=== PATIENT | female | born 1945 | race Caucasian/White ===

== ENCOUNTER → 2025-03-23 16:48 | Outpatient (ROUT) | payer SELFPAY ==
[2025-03-23 17:08] LABS: Bilirubin Urine UA Negative (NEGATIVE); Glucose Urine UA NEGATIVE (Negative); Ketones Urine UA NEGATIVE (NEGATIVE)
[2025-03-23 17:09] LABS: Occult Blood Urine UA Negative (Negative); pH Urine UA 8 (4.5-8.0)
[2025-03-23 17:10] LABS: Leukocyte Esterase Urine UA 4+ (NEGATIVE); Nitrite Urine UA POSITIVE (Negative); Protein Urine UA 2+ (Negative)
[2025-03-23 17:11] LABS: Urobilinogen Urine UA 0.2 E.U./dL (0.2)
[2025-03-23 17:12] LABS: Bacteria Urine Moderate (10-30); Calcium Oxalate Crystals Urine Few; Culture Indicated Urine Specimen Cultured; RBC Urine None Seen (0-5/HPF); Squamous Epithelial Cell Urine None Seen (0-5/HPF); Urine Volume 10mL (spun); WBC Urine >100/HPF (0-5/HPF)
[2025-03-23 20:58] LABS: Appearance Urine UA Cloudy; Color Urine UA Yellow
== END ==
LOC: LAB 16:50
DX: R35.0 Frequency of micturition (principal); R30.0 Dysuria; N39.41 Urge incontinence
CPT/HCPCS: 81001; 87077; 87086; 87186

== ENCOUNTER 2025-03-26 14:58 | Emergency (ER) | payer MEDICARE, MEDICAID, SELFPAY ==
[2025-03-26] VITALS (19 sets, daily range): BP systolic 117–206; BP diastolic 63–123; PULSE 77–98; RESP 12–24; TEMP 36.6; O2SAT 94–99; BMI 30.6
--- NOTE | 2025-03-26 15:10 | EKG_ITS ---
[address] [address] Test Date: 2025-03-26 Pat Name: AURORA YADAV Department: Room: Gender: Female Lab Analyst: CYRIL : 1945 Requested By: Order Number: [id number] Reading MD: Damian Subramanian Measurements Intervals [place] Rate: 89 P: 53 IN: 192 QRS: -21 QRSD: 88 T: 47 QT: 380 QTc: 462 Interpretive Statements Normal sinus rhythm Inferior infarct , age undetermined Possible Anterior infarct , age undetermined Electronically Signed On 03-29-2025 17:37:47 PDT by Damian Subramanian
[2025-03-26 15:56] LABS: Add Manual Diff / Slide Review SLIDE REVIEW; Basophils Absolute Auto 100 /uL (0-100); Basophils Percent Auto 1.2 % (0-2); Eosinophils Absolute Auto 300 /uL (0-450); Eosinophils Percent Auto 2.4 % (2-4); Hemoglobin 13.9 g/dL (12.0-16.0); Lymphocytes Absolute Auto 2500 /uL (1100-4500); Lymphocytes Percent Auto 23.4 % (25-40); Mean Corpuscular HGB Conc 34.6 % (30-36); Mean Corpuscular Hemoglobin 31.7 PG (26-34); Mean Corpuscular Volume 91.6 fL (80-100); Monocytes Absolute Auto 1000 /uL (0-900); Monocytes Percent Auto 9.6 % (3-14); Neutrophils Absolute Auto 6700 /uL (1500-7000); Neutrophils Percent Auto 63.4 % (50-75); Platelet Count 222 X10^3/uL (150-400); Red Blood Cell Count 4.37 X10^6/uL (4.0-5.2); Red Cell Distribution Width 14.5 % (11.6-14.8); White Blood Cell Count 10.6 X10^3/uL (4.5-11.0)
[2025-03-26 16:05] LABS: Alanine Aminotransferase 41 IU/L (<35); Albumin 4.7 g/dL (3.5-5.0); Albumin Globulin Ratio 1.6 (1.0-2.8); Alkaline Phosphatase 81 U/L (38-126); Aspartate Aminotransferase 54 IU/L (14-36); BUN Creatinine Ratio 23.2 (6-22); Bilirubin Total 0.5 mg/dL (0.2-1.3); Blood Urea Nitrogen 23 mg/dL (7-17); Calcium 9.8 mg/dL (8.4-10.2); Carbon Dioxide 26 mmol/L (22-32); Chloride 101 mmol/L (98-107); Estimated Glomerular Filt Rate 58 mL/min (>60); Globulin 2.9 g/dL (1.7-4.1); Glucose 151 mg/dL (70-99); HEMOLYSIS 28 (0-50); Lipase 108 U/L (23-300); Potassium 3.2 mmol/L (3.4-5.1); Sodium 139 mmol/L (137-145); Total Protein 7.6 g/dL (6.3-8.2)
[2025-03-26 16:07] LABS: RBC Morphology Normal Morphology
[2025-03-26 17:00] LABS: Urine Volume 10mL (spun)
[2025-03-26 17:01] LABS: Bacteria Urine Many (>30); RBC Urine 0-1/HPF (0-5/HPF); WBC Urine 10-30/HPF (0-5/HPF)
[2025-03-26 17:02] LABS: Amorphous Sediment Urine 1+; Culture Indicated Urine Specimen Cultured; Squamous Epithelial Cell Urine 1-5 /HPF (0-5/HPF)
--- NOTE | 2025-03-26 18:22 | DI.CT.S_ITS ---
PROCEDURE: CT ABDOMEN PELVIS W CON INDICATIONS: LLQ abd pain TECHNIQUE: After the administration of intravenous contrast, axial sections acquired from the lung bases to the pubic symphysis. Coronal and sagittal reformats were performed. For radiation dose reduction, the following was used: automated exposure control, adjustment of mA and/or kV according to patient size. COMPARISON: None. FINDINGS: Image quality: Diagnostic. Lower Chest: Lung bases are clear. Moderate hiatal hernia. ABDOMEN: Liver: No solid mass. Gallbladder: No radiopaque gallstones or wall thickening. Biliary ducts: No biliary dilation. Pancreas: No ductal dilation. Several cysts are noted throughout the pancreas, largest near the uncinate process measuring 2.7 cm. Spleen: Size is within normal limits. Adrenal Glands: No adrenal nodules. Kidneys and Ureters: No hydronephrosis. No solid mass. No complex renal cystic lesion which requires follow up. Stomach and Bowel: Normal colonic caliber, without significant wall thickening. Diverticulosis with minimal inflammation surrounding the descending colon, concerning for mild acute diverticulitis. Peritoneum: No abnormal intraperitoneal fluid. No free air. Ventral Wall: Small fat containing supraumbilical ventral hernia. Abdominal Nodes: No retroperitoneal or mesenteric adenopathy by size criteria. Vessels: Aorta and inferior vena cava are normal in size. Atherosclerotic vascular calcifications. PELVIS: Pelvic Organs: Hysterectomy. Bladder: Mild urinary bladder wall thickening. Pelvic Nodes: No enlarged lymph nodes. Miscellaneous: No inguinal hernias are seen. Bones: No aggressive osseous abnormality. Right hip arthroplasty. Degenerative changes of the spine. Decreased osseous mineralization. IMPRESSION: 1. Diverticulosis with minimal inflammation surrounding the descending colon, concerning for mild or early acute diverticulitis. 2. Mild urinary bladder wall thickening, correlate for acute cystitis. 3. Multiple simple appearing pancreatic cysts, may represent IPMN's. Recommend nonurgent MRI pancreatic protocol for further evaluation. 4. Please see above for additional findings. Dictated by: Alexis Martinez M.D. on 03/26/2025 at 19:07 Approved by: Alexis Martinez M.D. on 03/26/2025 at 19:13
--- NOTE | 2025-03-26 19:31 | ED.ABDPAIN ---
HPI - Abdominal Pain General Chief Complaint: Abdominal Pain Stated Complaint: LLQ abdomen pain Time Seen by Provider: 03/26/25 18:22 Source: patient and EMS Mode of arrival: EMS History of Present Illness HPI narrative: 79-year-old female most recently resident for the last 2 weeks at [facility], reports previous admission last month in [facility] given IV penicillin for streptococcal infection in abdomen, now with couple of days duration of increasing left lower abdominal pain. No injury or trauma. She has been able to take amoxicillin in the past, has an extensive allergies list including many medications including a many antibiotics. Denies fevers, chills, cough, shortness of breath. Denies nausea, vomiting, diarrhea, black or red stools. Related Data Previous Rx's Medication Instructions Recorded amoxicillin 875 mg-potassium 1 tab PO BID #20 tabs 03/26/25 clavulanate 125 mg tablet Allergies Allergy/AdvReac Type Severity Reaction Status Date / Time amlodipine Allergy Verified 03/26/25 15:31 Beta-Adrenergic Agents Allergy Verified 03/26/25 15:31 chlorthalidone Allergy Verified 03/26/25 15:31 felodipine Allergy Verified 03/26/25 15:31 hydralazine Allergy Verified 03/26/25 15:31 levofloxacin Allergy Verified 03/26/25 15:31 linagliptin Allergy Verified 03/26/25 15:31 lisinopril Allergy Verified 03/26/25 15:31 metformin Allergy Verified 03/26/25 15:31 metronidazole Allergy Verified 03/26/25 15:31 nitrofurantoin Allergy Verified 03/26/25 15:31 penicillin V Allergy Verified 03/26/25 15:31 pheniramine Allergy Verified 03/26/25 15:31 spironolactone Allergy Verified 03/26/25 15:31 sulfamethoxazole Allergy Verified 03/26/25 15:31 [From Bactrim] triamterene Allergy Verified 03/26/25 15:31 trimethoprim [From Bactrim] Allergy Verified 03/26/25 15:31 Patient History Social History Smoking Status: Never smoker Smoking Status: Never smoker Exam Narrative Exam Narrative: GENERAL: Well-developed patient, in mild distress. HEAD: Atraumatic. Normocephalic. EYES: Pupils equal round and reactive. Extraocular motions intact. No scleral icterus. No injection or drainage. ENT: Nose without bleeding, purulent drainage. Throat without erythema, tonsillar hypertrophy or exudate. Airway patent. NECK: Trachea midline. Non tender CARDIOVASCULAR: Regular rate and rhythm without murmurs, gallops, or rubs. RESPIRATORY: Clear to auscultation. Breath sounds equal bilaterally. No wheezes, rales, or rhonchi. GASTROINTESTINAL: Mild tenderness left lower quadrant without guarding or rebound, nondistended, nonrigid. Bowel tones unremarkable. EXTREMITIES: No edema or joint tenderness. BACK: Nontender without deformity or crepitance. No flank tenderness. NEURO: AOx3. Motor functions grossly nonfocal SKIN: No rash or erythema of visible areas Initial Vital Signs Initial Vital Signs: Vital Signs Pulse Rate 94 H 03/26/25 15:04 Blood Pressure 117/73 03/26/25 15:04 Pulse Oximetry 96 03/26/25 15:04 Course Orders Ordered: Discontinued Medications Amoxicillin/Clavulanate Potassium (Amoxicillin/Clav 875/125 Mg) 1 tab PO NOW ONE Stop: 03/26/25 19:33 Last Admin: 03/26/25 19:58 Dose: 1 tab Documented By: TADEO POTASSIUM CHLORIDE IN WATER (Potassium Cl 10 Meq/100 Ml Maria D) 10 meq in 100 mls @ 100 mls/hr IV Q1H PETTY Stop: 03/26/25 21:14 Last Admin: 03/26/25 20:50 Dose: 100 mls/hr Documented By: Infusion: 03/26/25 20:39 Dose: Infused Documented By: Admin: 03/26/25 19:39 Dose: 100 mls/hr Documented By: TADEO Ondansetron HCl (Ondansetron 4 Mg/2 Ml Inj) 4 mg IV NOW PRN PRN Reason: Nausea And Vomiting Ondansetron HCl (Ondansetron 4 Mg Odt) 4 mg PO NOW PRN PRN Reason: Nausea And Vomiting Vital Signs Vital signs: Vital Signs - 8 hr 03/26/25 19:30 03/26/25 19:40 03/26/25 19:40 Pulse Rate 87 81 Respiratory Rate 19 18 Blood Pressure 206/99 H Pulse Oximetry 96 98 Oxygen Delivery Method Room Air 03/26/25 19:41 03/26/25 19:41 03/26/25 20:00 Pulse Rate 82 88 Respiratory Rate 20 18 Blood Pressure 136/65 Pulse Oximetry 98 96 Oxygen Delivery Method Room Air 03/26/25 20:00 03/26/25 20:30 03/26/25 20:30 Pulse Rate 91 H Respiratory Rate 19 Blood Pressure 147/72 H 164/123 H Pulse Oximetry 97 Oxygen Delivery Method Room Air 03/26/25 21:00 03/26/25 21:00 03/26/25 21:30 Pulse Rate 94 H Respiratory Rate 20 Blood Pressure 150/72 H 146/79 H Pulse Oximetry Oxygen Delivery Method 03/26/25 21:30 Pulse Rate 87 Respiratory Rate 24 Blood Pressure Pulse Oximetry 99 Oxygen Delivery Method Room Air MDM - Abdominal Pain Lab Data Attestation: I reviewed the patient's lab results. Lab results narrative: White blood cell count 52644. Hemoglobin 13.9, platelets adequate. Renal function adequate. Glucose 151. Potassium 3.2 low. Urinalysis with many bacteria, urine culture requested. 03/26/25 15:40 03/26/25 15:40 Labs: Lab Results 03/26/25 03/26/25 Range/Units 15:40 16:34 WBC 10.6 (4.5-11.0) X10^3/uL RBC 4.37 (4.0-5.2) X10^6/uL Hgb 13.9 (12.0-16.0) g/dL Hct 40.0 (36-46) % MCV 91.6 (80-100) fL MCH 31.7 (26-34) PG MCHC 34.6 (30-36) % RDW 14.5 (11.6-14.8) % Plt Count 222 (150-400) X10^3/uL Neut % (Auto) 63.4 (50-75) % Lymph % (Auto) 23.4 L (25-40) % [place] % (Auto) 9.6 (3-14) % Eos % (Auto) 2.4 (2-4) % Baso % (Auto) 1.2 (0-2) % Neut # (Auto) 6700 (4318-6392) /uL Lymph # (Auto) 2500 (4211-2472) /uL [place] # (Auto) 1000 H (0-900) /uL Eos # (Auto) 300 (0-450) /uL Baso # (Auto) 100 (0-100) /uL Plt Morphology Comment RBC Morphology Normal morphology Sodium 139 (137-145) mmol/L Potassium 3.2 L (3.4-5.1) mmol/L Chloride 101 (98-107) mmol/L Carbon Dioxide 26 (22-32) mmol/L BUN 23 H (7-17) mg/dL Creatinine 0.99 (0.52-1.04) mg/dL Estimated GFR 58 L (>60) mL/min BUN/Creatinine Ratio 23.2 H (6-22) Glucose 151 H (70-99) mg/dL Calcium 9.8 (8.4-10.2) mg/dL Total Bilirubin 0.5 (0.2-1.3) mg/dL AST 54 H (14-36) IU/L ALT 41 H (<35) IU/L Alkaline Phosphatase 81 (38-126) U/L Total Protein 7.6 (6.3-8.2) g/dL Albumin 4.7 (3.5-5.0) g/dL Globulin 2.9 (1.7-4.1) g/dL Albumin/Globulin Ratio 1.6 (1.0-2.8) Lipase 108 (23-300) U/L Urine RBC 0-1/hpf (0-5/HPF) Urine WBC 10-30/hpf H (0-5/HPF) Ur Squamous Epith Cells 1-5 /hpf (0-5/HPF) Amorphous Sediment 1+ Urine Bacteria Many (>30) H (None) Ur Culture Indicated? Specimen cultured Vol Urine Centrifuged 10ml (spun) Point of care testing: Point of Care Testing Glucose POC 119 Urine Dip Bedside Urine Glucose Negative Bedside Urine Bilirubin - Negative Bedside Urine Ketone - Negative Urine Specific [place] 1.005 Bedside Urine Occult Blood +/- Bedside Urine pH 8.0 Bedside Urine Protein + 30 Bedside Urine Urobilinogen - Negative Bedside Urine Nitrite + Positive Bedside Urine Leukocytes +++ 500 Esterase ECG Data Attestation: I personally reviewed and interpreted this ECG as follows: Interpretation: Normal sinus rhythm with rate of 89, no obvious ST segment elevation or depression changes. CO 192, QRS 88, QTC 462. MDM Narrative Medical decision making narrative: 79-year-old female with numerous drug allergies including many antibiotics, has left lower quadrant abdominal pain, history of penicillin and amoxicillin allergy reported but she took both medications last month apparently for streptococcal infection when treated in [facility], no longer on antibiotics, now with left lower quadrant abdominal discomfort without trauma. Afebrile, sirs screen negative. Labs pending. Low potassium noted, keep NPO, IV potassium ordered. EKG unremarkable, sinus rhythm. White blood cell count normal. Renal function adequate. CT abdomen and pelvis ordered. CT abdomen and pelvis shows left-sided sigmoid diverticulitis changes mild/early, see radiology report. No perforation or obstruction. Oral Augmentin given, prescription for oral Augmentin course. Returned back to her [facility]. Advised recheck with your regular doctor in the next week. Return precautions discussed. Discharge Plan Departure Patient Disposition: Home Clinical Impression: Diverticulitis Activity Restrictions/Additional Instructions: You have left-sided abdominal discomfort. History of multiple drug allergies including to many antibiotics. However you reported a course of penicillin and then amoxicillin for streptococcal infection as an inpatient last month in [place], even though both penicillin and amoxicillin are listed on your drug allergies. CT scan tonight abdomen and pelvis was suspicious for early/mild sigmoid left-sided diverticulitis. This can be treated with oral Augmentin (amoxicillin/clavulanate). Oral Augmentin dose given in the emergency department, prescription sent to your pharmacy for 10 day course. Take antibiotics as directed. Consider taking [id number] probiotics during and after your course of oral antibiotics. Recheck symptoms with your regular doctor through [facility] in the next couple of days on antibiotics. Return to this/nearest emergency department for any change worsening symptoms or any concerns prior. Prescriptions: New amoxicillin-pot clavulanate 875-125 mg tablet 1 tab PO BID Qty: 20 0RF Stand Alone Forms: Patient Portal/API/Survey
[2025-03-26] MEDS: POTASSIUM CHLORIDE IN WATER 10 MEQ/100 ML PIGGYBACK 100 MEQ IV ×2 (19:39→20:50)
[2025-03-26] MEDS: AMOXICILLIN/CLAV 875/125 MG 1 TAB PO (19:58)
--- NOTE | 2025-03-26 21:10 | PC.NURSE ---
Called [facility] at . Left message about pt being discharged and the instructions with DC.
== END 2025-03-26 22:17 | disposition home or self-care (01) ==
PROVIDERS: Emergency Medicine; Emergency Provider Emergency Medicine
DX: K57.92 Diverticulitis of intestine, part unspecified, without perforation or abscess without bleeding (principal)
CPT/HCPCS: 36415; 74177; 80053; 81003; 81015; 82962; 83690; 85025; 87077; 87086; 87186; 93005; 96365; 99284; Q9967

== ENCOUNTER → 2025-04-12 09:33 | Outpatient (ROUT) | payer MEDICARE, MEDICAID, SELFPAY ==
[2025-04-12 09:55] LABS: Hematocrit 40.2 % (36-46); Hemoglobin 14.2 g/dL (12.0-16.0); Mean Corpuscular HGB Conc 35.2 % (30-36); Mean Corpuscular Hemoglobin 32.2 PG (26-34); Mean Corpuscular Volume 91.5 fL (80-100); Platelet Count 260 X10^3/uL (150-400); Red Blood Cell Count 4.39 X10^6/uL (4.0-5.2); Red Cell Distribution Width 14.7 % (11.6-14.8)
[2025-04-12 10:11] LABS: BUN Creatinine Ratio 25.6 (6-22); Blood Urea Nitrogen 21 mg/dL (7-17); Calcium 9.8 mg/dL (8.4-10.2); Carbon Dioxide 23 mmol/L (22-32); Chloride 103 mmol/L (98-107); Cholesterol 120 mg/dL (140-199); Estimated Glomerular Filt Rate > 60 mL/min (>60); Glucose 153 mg/dL (70-99); HDL Cholesterol 38 mg/dL (40-60); HEMOLYSIS < 15 (0-50); LDL Cholesterol Calculated 50 mg/dL (<100); Magnesium 1.9 mg/dL (1.6-2.3); Sodium 141 mmol/L (137-145); Triglycerides 160 mg/dL (35-150)
[2025-04-12 10:14] LABS: Hemoglobin A1C% w Est Avg Glu 7.2 % (4.0-6.0)
[2025-04-12 10:45] LABS: Thyroid Stimulating Hormone 4.83 uIU/mL (0.47-4.68)
== END ==
LOC: LAB 09:33
PROVIDERS: Visit Provider Registered Nurse
DX: E11.9 Type 2 diabetes mellitus without complications (principal); I10 Essential (primary) hypertension; E78.5 Hyperlipidemia, unspecified; E03.9 Hypothyroidism, unspecified
CPT/HCPCS: 36415; 80048; 80061; 83036; 83735; 84443; 85027

== ENCOUNTER → 2025-06-07 07:22 | Outpatient (ROUT) | payer MEDICARE, MEDICAID, SELFPAY ==
[2025-06-07 07:59] LABS: Blood Urea Nitrogen 12 mg/dL (7-17); Estimated Glomerular Filt Rate > 60 mL/min (>60); HEMOLYSIS < 15 (0-50); Potassium 3.5 mmol/L (3.4-5.1)
[2025-06-07 08:30] LABS: Thyroid Stimulating Hormone 5.16 uIU/mL (0.47-4.68)
== END ==
PROVIDERS: Visit Provider Physical Therapy Assistant
DX: E03.9 Hypothyroidism, unspecified (principal); I10 Essential (primary) hypertension
CPT/HCPCS: 36415; 82565; 84132; 84443; 84520

== ENCOUNTER 2025-06-08 08:09 | Emergency (ER) | payer MEDICARE, MEDICAID, SELFPAY ==
[2025-06-08] VITALS (14 sets, daily range): BP systolic 131–160; BP diastolic 69–93; PULSE 93–106; RESP 18; TEMP 36.6; O2SAT 91–96; BMI 33.3
--- NOTE | 2025-06-08 08:45 | ED.GENADULT ---
HPI - General Adult General Chief complaint: Psychiatric Symptoms Stated complaint: combative/newly uncooperative/ AMS Time Seen by Provider: 06/08/25 08:14 Source: patient and EMS Mode of arrival: EMS History of Present Illness HPI narrative: 79-year-old female resident of [facility] with a past medical history significant for bipolar disorder, hypertension, major depression, obstructive sleep apnea, dyslipidemia type 2 diabetic insomnia align personality disorder hypothyroidism osteoarthritis presents from the facility for being combative and uncooperative. Patient said she was living in [place] prior to being relocated to [facility] for 3 months now for which she shares a room with 2 other roommates. One roommate does not talk and the other 1 she fights over with whether the window is open or not and the TV is always on to loud. She says the food is terrible and she is not happy where she is at and she does not want to at this facility but has no active plans and is not hearing voices or seeing things. Other than what is stated 14 point review of system is negative. Related Data Home Medications ?Medication ?Instructions ?Recorded ?Confirmed acetaminophen 325 mg capsule 650 mg PO Q4H PRN fever or pain 06/08/25 06/08/25 aripiprazole 5 mg tablet (Abilify) 5 mg PO DAILY 06/08/25 06/08/25 ascorbic acid (vitamin C) 250 mg 250 mg PO DAILY 06/08/25 06/08/25 tablet (Vitamin C) blood sugar diagnostic (OneTouch 06/08/25 06/08/25 Ultra Test strips) blood-glucose meter (OneTouch 06/08/25 06/08/25 Ultra2 Meter) docusate sodium 250 mg capsule 500 mg PO BEDTIME 06/08/25 06/08/25 (Col-Rite) hydrochlorothiazide 50 mg tablet 50 mg PO DAILY 06/08/25 06/08/25 insulin glargine 100 unit/mL (3 20 unit SUBCUT .at bedtime 06/08/25 06/08/25 mL) subcutaneous pen (Lantus Solostar U-100 Insulin) insulin lispro 100 unit/mL 6 unit SUBCUT AC 06/08/25 06/08/25 subcutaneous pen (Humalog KwikPen (U-100) Insulin) lancets 30 gauge (TRUEplus Lancets) 06/08/25 06/08/25 levothyroxine 75 mcg tablet 75 mcg PO DAILY 06/08/25 06/08/25 loratadine 10 mg tablet (Allergy 10 mg PO Q24H PRN allergic symptoms 06/08/25 06/08/25 Relief (loratadine)) magnesium oxide 400 mg PO TID 06/08/25 06/08/25 melatonin 5 mg capsule 10 mg PO .at bedtime sleep aide 06/08/25 06/08/25 [id number]- 250 mg-dha 90 1 cap PO DAILY 06/08/25 06/08/25 mg-epa 160 [id number]-[id number]-zeax capsule (Ocuvite Adult 50 Plus) naproxen 500 mg tablet 500 mg PO Q12H PRN pain 06/08/25 06/08/25 nifedipine 30 mg tablet,extended 30 mg PO .morning 06/08/25 06/08/25 release 24 hr potassium chloride 20 mEq 20 meq PO DAILY 06/08/25 06/08/25 tablet,extended release(part/cryst) sitagliptin 100 mg tablet (Zituvio) 100 mg PO DAILY 06/08/25 06/08/25 vitamin B complex (Vitamins B 1 cap PO DAILY 06/08/25 06/08/25 Complex capsule) Allergies Allergy/AdvReac Type Severity Reaction Status Date / Time amlodipine Allergy Verified 06/08/25 08:26 Beta-Adrenergic Agents Allergy Verified 06/08/25 08:26 chlorthalidone Allergy Verified 06/08/25 08:26 felodipine Allergy Verified 06/08/25 08:26 hydralazine Allergy Verified 06/08/25 08:26 levofloxacin Allergy Verified 06/08/25 08:26 linagliptin Allergy Verified 06/08/25 08:26 lisinopril Allergy Verified 06/08/25 08:26 metformin Allergy Verified 06/08/25 08:26 metronidazole Allergy Verified 06/08/25 08:26 nitrofurantoin Allergy Verified 06/08/25 08:26 penicillin V Allergy Verified 06/08/25 08:26 pheniramine Allergy Verified 06/08/25 08:26 spironolactone Allergy Verified 06/08/25 08:26 sulfamethoxazole (From Allergy Verified 06/08/25 08:26 Bactrim) triamterene Allergy Verified 06/08/25 08:26 trimethoprim (From Bactrim) Allergy Verified 06/08/25 08:26 Review of Systems Review of Systems ROS Unobtainable: All systems reviewed & are unremarkable except as noted in HPI and below Exam Narrative Exam Narrative: GENERAL: [79] year old patient appears stated age. Well-developed patient, in mild distress. HEAD: Atraumatic. Normocephalic. EYES: Pupils equal round and reactive. Extraocular motions intact. No scleral icterus. No injection or drainage. ENT: Nose without bleeding, purulent drainage. Throat without erythema, tonsillar hypertrophy or exudate. Airway patent. NECK: Trachea midline. Non tender CARDIOVASCULAR: Regular rate and rhythm without murmurs, gallops, or rubs. RESPIRATORY: Clear to auscultation. Breath sounds equal bilaterally. No wheezes, rales, or rhonchi. GASTROINTESTINAL: Abdomen soft, non-tender, nondistended. EXTREMITIES: No edema or joint tenderness. BACK: Nontender without deformity or crepitance. No flank tenderness. NEURO: AOx3. SKIN: No rash or erythema of visible areas Initial Vital Signs Initial Vital Signs: Vital Signs Pulse Rate 97 H 06/08/25 08:19 Pulse Oximetry 93 06/08/25 08:19 Psych Mental Status: mental status grossly normal Speech and Movement: delayed speech Mood: irritable mood Affect: sad Attitude: cooperative Thought Process: normal Thought Content: normal and suicidality Judgment: fair Course Orders Ordered: ED Orders 06/08/25 08:42 [place] [facility] Stat 06/08/25 09:00 Acetaminophen Stat Complete Blood Count AUTO DIFF Stat Comprehensive Metabolic Panel Stat Ethanol (ETOH) Stat Free T4, Direct Thyroxine Stat MAG [Magnesium] Stat Salicylate Stat TSH w/ Reflex to FT4 Stat 06/08/25 10:18 Urine Culture Stat Urine Microscopic Stat 06/08/25 10:20 Urine Drug Screen, Rapid Stat Dextrose (D10w) 100 mls @ 1,200 mls/hr IV PRN PRN PRN Reason: Hypoglycemia Insulin Glargine (Insulin Glargine 100 Unit/Ml 3ml Pen) 20 unit SUBCUT BEDTIME PETTY Insulin Human Lispro (Insulin Lispro 100 Unit/Ml 3ml Vial) 0 unit SUBCUT ACHS PETTY; Protocol Last Admin: 06/08/25 11:58 Dose: 5 unit Documented By: RB Co-signed By: CTS Sitagliptin Phosphate (Sitagliptin 50 Mg Tablet) 100 mg PO DAILY PETTY Last Admin: 06/08/25 10:47 Dose: Not Given Documented By: RB Discontinued Medications Hydrochlorothiazide (Hydrochlorothiazide 25 Mg Tablet) 50 mg PO NOW ONE Stop: 06/08/25 09:53 Last Admin: 06/08/25 10:17 Dose: 50 mg Documented By: RB Nifedipine (Nifedipine 30 Mg Tab Er) 90 mg PO NOW ONE Stop: 06/08/25 09:53 Last Admin: 06/08/25 10:48 Dose: 90 mg Documented By: RB Potassium Chloride (Potassium Chloride 20 Meq/15 Ml Udc) 40 meq PO NOW ONE Stop: 06/08/25 09:51 Last Admin: 06/08/25 10:01 Dose: Not Given Documented By: RB Potassium Chloride (Potassium Chloride 20 Meq Tab) 40 meq PO NOW ONE Stop: 06/08/25 09:53 Last Admin: 06/08/25 10:17 Dose: 40 meq Documented By: RB Vital Signs Vital signs: Vital Signs - 8 hr 06/08/25 08:19 06/08/25 08:20 06/08/25 08:20 Temperature Pulse Rate 97 H 94 H Respiratory Rate Blood Pressure 132/84 Pulse Oximetry 93 96 Oxygen Delivery Method 06/08/25 08:25 06/08/25 08:30 06/08/25 08:30 Temperature 97.9 F Pulse Rate 93 H 104 H Respiratory Rate 18 Blood Pressure 132/84 160/93 H Pulse Oximetry 95 Oxygen Delivery Method Room Air 06/08/25 09:00 06/08/25 09:30 06/08/25 10:00 Temperature Pulse Rate 94 H 98 H 95 H Respiratory Rate Blood Pressure Pulse Oximetry 91 91 94 Oxygen Delivery Method 06/08/25 10:23 06/08/25 10:23 06/08/25 10:30 Temperature Pulse Rate 106 H 104 H Respiratory Rate Blood Pressure 141/79 H Pulse Oximetry 94 92 Oxygen Delivery Method 06/08/25 10:30 06/08/25 11:00 06/08/25 11:00 Temperature Pulse Rate 100 H Respiratory Rate Blood Pressure 137/69 131/93 H Pulse Oximetry 93 Oxygen Delivery Method 06/08/25 11:30 06/08/25 11:30 Temperature Pulse Rate 97 H Respiratory Rate Blood Pressure 153/80 H Pulse Oximetry 94 Oxygen Delivery Method Medical Decision Making Lab Data 06/08/25 09:00 06/08/25 09:00 Labs: Lab Results 06/08/25 06/08/25 06/08/25 Range/Units 08:47 09:00 10:18 WBC 7.7 (4.5-11.0) X10^3/uL RBC 4.83 (4.0-5.2) X10^6/uL Hgb 15.3 (12.0-16.0) g/dL Hct 43.9 (36-46) % MCV 90.9 (80-100) fL MCH 31.7 (26-34) PG MCHC 34.9 (30-36) % RDW 13.6 (11.6-14.8) % Plt Count 214 (150-400) X10^3/uL Neut % (Auto) 67.4 (50-75) % Lymph % (Auto) 18.0 L (25-40) % Webb % (Auto) 9.2 (3-14) % Eos % (Auto) 4.4 H (2-4) % Baso % (Auto) 1.0 (0-2) % Neut # (Auto) 5200 (6749-7117) /uL Lymph # (Auto) 1400 (8633-1313) /uL Webb # (Auto) 700 (0-900) /uL Eos # (Auto) 300 (0-450) /uL Baso # (Auto) 100 (0-100) /uL Sodium 138 (137-145) mmol/L Potassium 3.0 L (3.4-5.1) mmol/L Chloride 102 (98-107) mmol/L Carbon Dioxide 27 (22-32) mmol/L BUN 12 (7-17) mg/dL Creatinine 0.67 (0.52-1.04) mg/dL Estimated GFR > 60 (>60) mL/min BUN/Creatinine Ratio 17.9 (6-22) Glucose 216 H (70-99) mg/dL POC Whole Bld Glucose 196 H (70-99) mg/dL Calcium 9.6 (8.4-10.2) mg/dL Magnesium 1.7 (1.6-2.3) mg/dL Total Bilirubin 0.6 (0.2-1.3) mg/dL AST 66 H (14-36) IU/L ALT 66 H (<35) IU/L Alkaline Phosphatase 89 (38-126) U/L Total Protein 7.4 (6.3-8.2) g/dL Albumin 4.4 (3.5-5.0) g/dL Globulin 3.0 (1.7-4.1) g/dL Albumin/Globulin Ratio 1.5 (1.0-2.8) TSH 4.71 H (0.47-4.68) uIU/mL Free T4 1.30 (0.78-2.19) ng/dL Urine RBC 0-1/hpf (0-5/HPF) Urine WBC 1-5/hpf (0-5/HPF) Ur Squamous Epith Cells 1-5 /hpf (0-5/HPF) Urine Bacteria Occasional (0-1) (None) Ur Culture Indicated? Specimen cultured Vol Urine Centrifuged 10ml (spun) Salicylates < 1.0 (<20) mg/dL U Opiates 300ng/mL cut (Negative) Ur Oxycodone Screen (Negative) Urine Methadone Screen (Negative) Acetaminophen < 10 (10-30) ug/mL Ur Barbiturates Screen (Negative) U Tricyclic Antidepress (Negative) Ur Phencyclidine Scrn (Negative) Ur Amphetamines Screen (Negative) U Methamphetamines Scrn (Negative) Ur MDMA Scrn (Ecstasy) (Negative) U Benzodiazepines Scrn (Negative) Urine Cocaine Screen (Negative) U Marijuana (THC) Screen (Negative) Urine pH (Normal) Urine Specific [place] (Normal) Ethyl Alcohol < 10 (<10) mg/dL Ur Creatinine (Normal) 06/08/25 06/08/25 Range/Units 10:20 11:54 WBC (4.5-11.0) X10^3/uL RBC (4.0-5.2) X10^6/uL Hgb (12.0-16.0) g/dL Hct (36-46) % MCV (80-100) fL MCH (26-34) PG MCHC (30-36) % RDW (11.6-14.8) % Plt Count (150-400) X10^3/uL Neut % (Auto) (50-75) % Lymph % (Auto) (25-40) % Webb % (Auto) (3-14) % Eos % (Auto) (2-4) % Baso % (Auto) (0-2) % Neut # (Auto) (5297-6598) /uL Lymph # (Auto) (5254-7818) /uL Webb # (Auto) (0-900) /uL Eos # (Auto) (0-450) /uL Baso # (Auto) (0-100) /uL Sodium (137-145) mmol/L Potassium (3.4-5.1) mmol/L Chloride (98-107) mmol/L Carbon Dioxide (22-32) mmol/L BUN (7-17) mg/dL Creatinine (0.52-1.04) mg/dL Estimated GFR (>60) mL/min BUN/Creatinine Ratio (6-22) Glucose (70-99) mg/dL POC Whole Bld Glucose 282 H (70-99) mg/dL Calcium (8.4-10.2) mg/dL Magnesium (1.6-2.3) mg/dL Total Bilirubin (0.2-1.3) mg/dL AST (14-36) IU/L ALT (<35) IU/L Alkaline Phosphatase (38-126) U/L Total Protein (6.3-8.2) g/dL Albumin (3.5-5.0) g/dL Globulin (1.7-4.1) g/dL Albumin/Globulin Ratio (1.0-2.8) TSH (0.47-4.68) uIU/mL Free T4 (0.78-2.19) ng/dL Urine RBC (0-5/HPF) Urine WBC (0-5/HPF) Ur Squamous Epith Cells (0-5/HPF) Urine Bacteria (None) Ur Culture Indicated? Vol Urine Centrifuged Salicylates (<20) mg/dL U Opiates 300ng/mL cut Negative (Negative) Ur Oxycodone Screen Negative (Negative) Urine Methadone Screen Negative (Negative) Acetaminophen (10-30) ug/mL Ur Barbiturates Screen Negative (Negative) U Tricyclic Antidepress Negative (Negative) Ur Phencyclidine Scrn Negative (Negative) Ur Amphetamines Screen Negative (Negative) U Methamphetamines Scrn Negative (Negative) Ur MDMA Scrn (Ecstasy) Negative (Negative) U Benzodiazepines Scrn Negative (Negative) Urine Cocaine Screen Negative (Negative) U Marijuana (THC) Screen Negative (Negative) Urine pH Normal (Normal) Urine Specific [place] Normal (Normal) Ethyl Alcohol (<10) mg/dL Ur Creatinine Normal (Normal) Urine Dip Bedside Urine Glucose Negative Bedside Urine Bilirubin - Negative Bedside Urine Ketone - Negative Urine Specific [place] 1.015 Bedside Urine Occult Blood - Negative Bedside Urine pH 6.5 Bedside Urine Protein - Negative Bedside Urine Urobilinogen - Negative Bedside Urine Nitrite - Negative Bedside Urine Leukocytes +++ 500 Esterase Point of care testing: Urine Dip Bedside Urine Glucose Negative Bedside Urine Bilirubin - Negative Bedside Urine Ketone - Negative Urine Specific [place] 1.015 Bedside Urine Occult Blood - Negative Bedside Urine pH 6.5 Bedside Urine Protein - Negative Bedside Urine Urobilinogen - Negative Bedside Urine Nitrite - Negative Bedside Urine Leukocytes +++ 500 Esterase MDM Narrative Medical decision making narrative: All lab work, vital signs, nurse triage note, medication list, previous ER visits and all imaging studies reviewed. Patient is started on new antidepressant recently continue on medication to ramp up to therapeutic levels with PCP following as outpatient. Patient is not actively suicidal and has no homicidal ideation or hallucinations auditory or visually. Okay for discharge back to senior care facility. Differential diagnosis includes acute stress disorder, adjustment disorder, anxiety, and depression Discharge Plan Departure Patient Disposition: Home Clinical Impression: Depression Qualifiers: Depression Type: major depressive disorder Major depression recurrence: single episode Active/Remission status: currently active Major depression episode severity: moderate Qualified Code(s): F32.1 - Major depressive disorder, single episode, moderate Instructions: Depression Activity Restrictions/Additional Instructions: Return with new or worsening symptoms. Continue taking your medicines as directed. Prescriptions: No Action (DME) blood-glucose meter [OneTouch Ultra2 Meter] Misc MISCELLANEOUS DAILY hydrochlorothiazide 50 mg tablet 50 mg PO DAILY (DME) OneTouch Ultra Test Strip 2 strip MISCELLANEOUS BID insulin glargine [Lantus Solostar U-100 Insulin] 100 unit/mL (3 mL) insulin pen 20 unit SUBCUT .at bedtime Patient Comments: [NO ORIGINAL SIG] insulin lispro [Humalog KwikPen Insulin] 100 unit/mL insulin pen 6 unit SUBCUT AC Patient Comments: [NO ORIGINAL SIG] Rx Instructions: inject 6 unit subcutaneously with meals for type 2 DM. hold insulin lispro if not eating or blood sugar less than 120. levothyroxine 75 mcg tablet 75 mcg PO DAILY naproxen 500 mg tablet 500 mg PO Q12H PRN (Reason: pain) (DME) lancets [TRUEplus Lancets] 30 gauge misc MISCELLANEOUS Patient Comments: [NO ORIGINAL SIG] nifedipine 30 mg tablet extended release 24hr 30 mg PO .morning potassium chloride 20 mEq tablet,ER particles/crystals 20 meq PO DAILY sitagliptin [Zituvio] 100 mg tablet 100 mg PO DAILY aripiprazole [Abilify] 5 mg tablet 5 mg PO DAILY magnesium oxide 400 mg magnesium tablet 400 mg PO TID melatonin 5 mg capsule 10 mg PO .at bedtime docusate sodium [Col-Rite] 250 mg capsule 500 mg PO BEDTIME loratadine [Allergy Relief (loratadine)] 10 mg tablet 10 mg PO Q24H PRN (Reason: allergic symptoms) ascorbic acid (vitamin C) [Vitamin C] 250 mg tablet 250 mg PO DAILY Ocuvite Adult 50 Plus 250 mg (90 mg-160 mg) capsule 1 cap PO DAILY vitamin B complex [Vitamins B Complex] Capsule 1 cap PO DAILY acetaminophen 325 mg capsule 650 mg PO Q4H PRN (Reason: fever or pain) Stand Alone Forms: Patient Portal/API
[2025-06-08 09:07] LABS: Add Manual Diff / Slide Review NO; Hematocrit 43.9 % (36-46); Hemoglobin 15.3 g/dL (12.0-16.0); Lymphocytes Absolute Auto 1400 /uL (1100-4500); Mean Corpuscular HGB Conc 34.9 % (30-36); Mean Corpuscular Hemoglobin 31.7 PG (26-34); Mean Corpuscular Volume 90.9 fL (80-100); Platelet Count 214 X10^3/uL (150-400)
[2025-06-08 09:18] LABS: Acetaminophen < 10 ug/mL (10-30); Alanine Aminotransferase 66 IU/L (<35); Albumin 4.4 g/dL (3.5-5.0); Albumin Globulin Ratio 1.5 (1.0-2.8); Alkaline Phosphatase 89 U/L (38-126); Blood Urea Nitrogen 12 mg/dL (7-17); Calcium 9.6 mg/dL (8.4-10.2); Carbon Dioxide 27 mmol/L (22-32); Chloride 102 mmol/L (98-107); Estimated Glomerular Filt Rate > 60 mL/min (>60); Ethanol (ETOH) < 10 mg/dL (<10); Globulin 3.0 g/dL (1.7-4.1); Glucose 216 mg/dL (70-99); HEMOLYSIS < 15 (0-50); Potassium 3.0 mmol/L (3.4-5.1); Salicylate < 1.0 mg/dL (<20); Sodium 138 mmol/L (137-145); Total Protein 7.4 g/dL (6.3-8.2)
[2025-06-08 09:55] LABS: TSH w/ Reflex to FT4 4.71 uIU/mL (0.47-4.68)
[2025-06-08 10:07] LABS: Magnesium 1.7 mg/dL (1.6-2.3)
[2025-06-08] MEDS: POTASSIUM CHLORIDE 20 MEQ TAB 40 MEQ PO (10:17)
[2025-06-08 10:22] LABS: Free T4, Direct Thyroxine 1.30 ng/dL (0.78-2.19)
[2025-06-08 10:26] LABS: UR Morphine/Opiate cutoff 300 Negative (Negative); Ur Specific Gravity Normal (Normal); Urine MDMA Negative (Negative); Urine Methamphetamines Negative (Negative); Urine Tetrahydrocannabinol Negative (Negative); Urine Tricyclic Antidepressant Negative (Negative)
[2025-06-08 10:27] LABS: Culture Indicated Urine Specimen Cultured
[2025-06-08] MEDS: NIFEdipine 30 MG TAB ER 90 MG PO (10:48)
[2025-06-08] MEDS: INSULIN LISPRO 100 UNIT/ML 3ML VIAL SUBCUT (11:58)
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
--- NOTE | 2025-06-08 13:11 | PC.NURSE ---
pt's care facility called and the director stated that she was concerned for the patient's safety due to the pt making SI threats and refusing to take her mood stabilizing medications. MANAGER WEB APPLICATION consulted and spoke to the director about this issue. patient has been cleared my the care team today to go back to her facility with resources to help with her depression symptoms.
== END 2025-06-08 13:20 | disposition home or self-care (01) ==
PROVIDERS: Emergency Provider Family Medicine
DX: F32.1 Major depressive disorder, single episode, moderate (principal); E03.9 Hypothyroidism, unspecified; E78.5 Hyperlipidemia, unspecified; I10 Essential (primary) hypertension; E11.9 Type 2 diabetes mellitus without complications; Z79.4 Long term (current) use of insulin; Z79.890 Hormone replacement therapy
CPT/HCPCS: 36415; 80053; 80305; 80320; 80329; 81003; 81015; 82962; 83735; 84439; 84443; 85025; 87086; 96372; 99284; G0480; J1815

== ENCOUNTER 2025-07-05 14:50 | Emergency (ER) | payer MEDICAID, SELFPAY ==
--- NOTE | 2025-07-05 15:09 | DI.CT.S_ITS ---
PROCEDURE: CT HEAD/BRAIN WO CON INDICATIONS: headache TECHNIQUE: Noncontrast 4.5 mm thick angled axial sections acquired from the foramen magnum to the vertex, with coronal and sagittal reformats. For radiation dose reduction, the following was used: automated exposure control, adjustment of mA and/or kV according to patient size. COMPARISON: None. FINDINGS: Image quality: Diagnostic. CSF spaces: Basal cisterns are patent. No extra-axial fluid collections. The ventricles are symmetric in size and shape. Brain: No intracranial bleeds or mass effect. There is cerebral volume loss, with resultant ventricular and sulcal prominence. There are periventricular and deep white matter chronic small vessel ischemic changes. There is intracranial internal carotid artery atherosclerosis. Skull and face: Calvarium and visualized facial bones appear intact, without suspicious lesions. Sinuses: Visualized sinuses and mastoids are clear. IMPRESSION: No acute intracranial pathology. Dictated by: Paulo Chester M.D. on 07/05/2025 at 15:22 Approved by: Paulo Chester M.D. on 07/05/2025 at 15:23
[2025-07-05 15:31] VITALS: BP 120/70; PULSE 101; RESP 18; TEMP 36.7; O2SAT 92; BMI 33.2
--- NOTE | 2025-07-05 15:47 | ED.HA ---
HPI - Headache General Chief Complaint: Headache Stated Complaint: Headache Time Seen by Provider: 07/05/25 14:55 Mode of arrival: Ambulatory History of Present Illness HPI Narrative: 79-year-old woman currently with a history of diabetes, hypothyroidism, depression currently on aripiprazole living at [facility], very unsatisfied with her current situation with a plethora of complaints that are not acute nor anything I am able to assist with in the emergency department, presents complaining of a horrible headache, 1 of the worst of her lives. She is requesting CT scan. She states that with increased stressors she has been having worsening headache. Pain. Tylenol does not help however she did take 500 mg of naproxen this morning found that it did help somewhat. She is no acute neurologic complaints. She believes the headaches are likely related to her psychosocial stressors and dissatisfaction with her current living situation. No fevers, cough, chills. Related Data Home Medications ?Medication ?Instructions ?Recorded ?Confirmed acetaminophen 325 mg capsule 650 mg PO Q4H PRN fever or pain 06/08/25 06/08/25 aripiprazole 5 mg tablet (Abilify) 5 mg PO DAILY 06/08/25 06/08/25 ascorbic acid (vitamin C) 250 mg 250 mg PO DAILY 06/08/25 06/08/25 tablet (Vitamin C) blood sugar diagnostic ([facility] 06/08/25 06/08/25 Ultra Test strips) blood-glucose meter ([facility] 06/08/25 06/08/25 Ultra2 Meter) docusate sodium 250 mg capsule 500 mg PO BEDTIME 06/08/25 06/08/25 (Col-Rite) hydrochlorothiazide 50 mg tablet 50 mg PO DAILY 06/08/25 06/08/25 insulin glargine 100 unit/mL (3 20 unit SUBCUT .at bedtime 06/08/25 06/08/25 mL) subcutaneous pen (Lantus Solostar U-100 Insulin) insulin lispro 100 unit/mL 6 unit SUBCUT AC 06/08/25 06/08/25 subcutaneous pen (Humalog KwikPen (U-100) Insulin) lancets 30 gauge (TRUEplus Lancets) 06/08/25 06/08/25 levothyroxine 75 mcg tablet 75 mcg PO DAILY 06/08/25 06/08/25 loratadine 10 mg tablet (Allergy 10 mg PO Q24H PRN allergic symptoms 06/08/25 06/08/25 Relief (loratadine)) magnesium oxide 400 mg PO TID 06/08/25 06/08/25 melatonin 5 mg capsule 10 mg PO .at bedtime sleep aide 06/08/25 06/08/25 [id number] 250 mg-dha 90 1 cap PO DAILY 06/08/25 06/08/25 mg-epa 160 [id number] capsule (Ocuvite Adult 50 Plus) naproxen 500 mg tablet 500 mg PO Q12H PRN pain 06/08/25 06/08/25 nifedipine 30 mg tablet,extended 30 mg PO .morning 06/08/25 06/08/25 release 24 hr potassium chloride 20 mEq 20 meq PO DAILY 06/08/25 06/08/25 tablet,extended release(part/cryst) sitagliptin 100 mg tablet (Zituvio) 100 mg PO DAILY 06/08/25 06/08/25 vitamin B complex (Vitamins B 1 cap PO DAILY 06/08/25 06/08/25 Complex capsule) Allergies Allergy/AdvReac Type Severity Reaction Status Date / Time amlodipine Allergy Verified 07/05/25 15:31 Beta-Adrenergic Agents Allergy Verified 07/05/25 15:31 chlorthalidone Allergy Verified 07/05/25 15:31 felodipine Allergy Verified 07/05/25 15:31 hydralazine Allergy Verified 07/05/25 15:31 levofloxacin Allergy Verified 07/05/25 15:31 linagliptin Allergy Verified 07/05/25 15:31 lisinopril Allergy Verified 07/05/25 15:31 metformin Allergy Verified 07/05/25 15:31 metronidazole Allergy Verified 07/05/25 15:31 nitrofurantoin Allergy Verified 07/05/25 15:31 penicillin V Allergy Verified 07/05/25 15:31 pheniramine Allergy Verified 07/05/25 15:31 spironolactone Allergy Verified 07/05/25 15:31 sulfamethoxazole (From Allergy Verified 07/05/25 15:31 Bactrim) triamterene Allergy Verified 07/05/25 15:31 trimethoprim (From Bactrim) Allergy Verified 07/05/25 15:31 Review of Systems Review of Systems Narrative: Pertinent positive and negative findings as per HPI Patient History Medical History (Updated 07/05/25 @ 15:55 by Mitzy Davis MD) Depression Hypothyroidism (acquired) Diabetes Exam Initial Vital Signs Initial Vital Signs: Vital Signs Temperature 98.0 F 07/05/25 15:31 Pulse Rate 101 H 07/05/25 15:31 Respiratory Rate 18 07/05/25 15:31 Blood Pressure 120/70 07/05/25 15:31 Pulse Oximetry 92 07/05/25 15:31 Oxygen Delivery Method Room Air 07/05/25 15:31 General: Alert, able to speak in full sentences despite her severe pain. Respiratory: Able to speak in full sentences, no obvious respiratory distress Skin: No obvious rashes, warm and dry Neurologic: Grossly intact no obvious asymmetries or abnormalities Psych: Fluent speech, frustration repeatedly expressed with current living situation, she is alert and otherwise appropriate Course Orders Ordered: ED Orders 07/05/25 15:09 CT head/brain wo con Stat Vital Signs Vital signs: Vital Signs - 8 hr 07/05/25 15:31 Temperature 98.0 F Pulse Rate 101 H Respiratory Rate 18 Blood Pressure 120/70 Pulse Oximetry 92 Oxygen Delivery Method Room Air MDM - Headache MDM Narrative Medical decision making narrative: 79-year-old woman with a history of diabetes, psychiatric disorder presumably depression but medical records are not completely clear currently on [facility] states she was moved up to [facility] 3 months ago and finds is completely untenable. She has been having worsening headaches ever since then. She attributes all of this to a fall that happened well over a year ago with imaging and studies appropriate at that time. Her headache this morning was 15/10 despite being able to calmly sit and describe her plethora of living situation difficulties. Naprosyn with somewhat helpful. CT scan of her head does not show intracranial hemorrhage. Currently there was no sign of stroke, mass, infection and no indication for blood work. Expressed to her that I understood how frustrating it was too live in a situation that is unpleasant however that is not a situation I am going to be able to fix in the emergency department. She is discharged back to [facility] Discharge Plan Departure Patient Disposition: Home Clinical Impression: Acute reaction to situational stress Headache Qualifiers: Headache type: unspecified Headache chronicity pattern: unspecified pattern Intractability: not intractable Qualified Code(s): R51.9 - Headache, unspecified Instructions: DI for Headache Activity Restrictions/Additional Instructions: Thank you for coming in today The CT scan of your head was entirely unremarkable I am sorry that you are so frustrated with your current living situation. Unfortunately, from the emergency department I am not able to help with that. It sounds like you are talking to appropriate people to try to make some changes. In the meantime, frustration can certainly exacerbate headaches. I would recommend making sure that you are drinking plenty of fluid, dehydration can be a trigger for headaches. Using the Naprosyn that you have with a single Tylenol up to 2 times a day may help control the pain of the headache. I wish you the best as you continue to work through your current living situation Prescriptions: No Action (DME) blood-glucose meter [OneTouch Ultra2 Meter[place] [facility] [place] hydrochlorothiazide 50 mg tablet 50 mg PO DAILY (DME) OneTouch Ultra Test Strip 2 strip MISCELLANEOUS BID insulin glargine [Lantus Solostar U-100 Insulin] 100 unit/mL (3 mL) insulin pen 20 unit SUBCUT .at bedtime Patient Comments: [NO ORIGINAL SIG] insulin lispro [Humalog KwikPen Insulin] 100 unit/mL insulin pen 6 unit SUBCUT AC Patient Comments: [NO ORIGINAL SIG] Rx Instructions: inject 6 unit subcutaneously with meals for type 2 DM. hold insulin lispro if not eating or blood sugar less than 120. levothyroxine 75 mcg tablet 75 mcg PO DAILY naproxen 500 mg tablet 500 mg PO Q12H PRN (Reason: pain) (DME) lancets [TRUEplus Lancets] 30 gauge [facility] MISCELLANEOUS Patient Comments: [NO ORIGINAL SIG] nifedipine 30 mg tablet extended release 24hr 30 mg PO .morning potassium chloride 20 mEq tablet,ER particles/crystals 20 meq PO DAILY sitagliptin [Zituvio] 100 mg tablet 100 mg PO DAILY aripiprazole [Abilify] 5 mg tablet 5 mg PO DAILY magnesium oxide 400 mg magnesium tablet 400 mg PO TID melatonin 5 mg capsule 10 mg PO .at bedtime docusate sodium [Col-Rite] 250 mg capsule 500 mg PO BEDTIME loratadine [Allergy Relief (loratadine)] 10 mg tablet 10 mg PO Q24H PRN (Reason: allergic symptoms) ascorbic acid (vitamin C) [Vitamin C] 250 mg tablet 250 mg PO DAILY Ocuvite Adult 50 Plus 250 mg (90 mg-160 mg) capsule 1 cap PO DAILY vitamin B complex [Vitamins B Complex] Capsule 1 cap PO DAILY acetaminophen 325 mg capsule 650 mg PO Q4H PRN (Reason: fever or pain) Stand Alone Forms: Patient Portal/API
[2025-07-05 16:33] VITALS: BP 151/75; PULSE 80; RESP 18; O2SAT 96
== END 2025-07-05 17:07 | disposition home or self-care (01) ==
PROVIDERS: Emergency Provider Emergency Medicine
DX: R51.9 Headache, unspecified (principal); F43.89 Other reactions to severe stress
CPT/HCPCS: 70450; 99281; 99284

== ENCOUNTER 2025-09-22 10:16 | Emergency (ER) | payer MEDICARE, MEDICAID, SELFPAY ==
[2025-09-22] VITALS (19 sets, daily range): BP systolic 112–194; BP diastolic 56–100; PULSE 62–80; RESP 11–20; TEMP 36.6; O2SAT 91–97; BMI 33.5
--- NOTE | 2025-09-22 10:33 | ED.GENADULT ---
HPI - General Adult General Chief complaint: Neuro Symptoms/Deficit Stated complaint: Left sided weakness Time Seen by Provider: 09/22/25 10:17 History of Present Illness HPI narrative: 79-year-old woman with a history of diabetes who states she has stopped taking her insulin, hypertension, frustration with social situation and lack of resources to provide adequate housing. She presents with a plethora of complaints about [facility] including the fact that nobody will listen to her, the food is horrible, there isn't enough fiber in the food, food is not diabetic appropriate. There was no sex available she does not have enough money to buy any food herself. She notes this is her 3rd Medicaid assisted living facility and she has not been happy with any of these. She is quite angry with her sister for ?putting me in all of these horrible living situations. She states she had a head injury year and a half ago and has chronic head pain from this. She is complaining significantly of said had pain and notes that she has been having significant left-sided weakness. Pinning her down on timeframe is difficult it is anywhere from with the initial head injury a year and a half ago to 1 month but she seems fairly consistent that the last 2 days have been worse. She is concerned that she can not walk more than a mi and she simply is not getting stronger as she is not being given healthy food. Related Data Home Medications ?Medication ?Instructions ?Recorded ?Confirmed acetaminophen 325 mg capsule 650 mg PO Q4H PRN fever or pain 06/08/25 06/08/25 aripiprazole 5 mg tablet (Abilify) 5 mg PO DAILY 06/08/25 06/08/25 ascorbic acid (vitamin C) 250 mg 250 mg PO DAILY 06/08/25 06/08/25 tablet (Vitamin C) blood sugar diagnostic (MoodswiingTouch 06/08/25 06/08/25 Ultra Test strips) blood-glucose meter (MoodswiingTouch 06/08/25 06/08/25 Ultra2 Meter) docusate sodium 250 mg capsule 500 mg PO BEDTIME 06/08/25 06/08/25 (Col-Rite) hydrochlorothiazide 50 mg tablet 50 mg PO DAILY 06/08/25 06/08/25 insulin glargine 100 unit/mL (3 20 unit SUBCUT .at bedtime 06/08/25 06/08/25 mL) subcutaneous pen (Lantus Solostar U-100 Insulin) insulin lispro 100 unit/mL 6 unit SUBCUT AC 06/08/25 06/08/25 subcutaneous pen (Humalog KwikPen (U-100) Insulin) lancets 30 gauge (TRUEplus Lancets) 06/08/25 06/08/25 levothyroxine 75 mcg tablet 75 mcg PO DAILY 06/08/25 06/08/25 loratadine 10 mg tablet (Allergy 10 mg PO Q24H PRN allergic symptoms 06/08/25 06/08/25 Relief (loratadine)) magnesium oxide 400 mg PO TID 06/08/25 06/08/25 melatonin 5 mg capsule 10 mg PO .at bedtime sleep aide 06/08/25 06/08/25 jczhmnvy-mkr- 250 mg-dha 90 1 cap PO DAILY 06/08/25 06/08/25 mg-epa 160 zg-ivbs-zphb-zeax capsule (Ocuvite Adult 50 Plus) naproxen 500 mg tablet 500 mg PO Q12H PRN pain 06/08/25 06/08/25 nifedipine 30 mg tablet,extended 30 mg PO .morning 06/08/25 06/08/25 release 24 hr potassium chloride 20 mEq 20 meq PO DAILY 06/08/25 06/08/25 tablet,extended release(part/cryst) sitagliptin 100 mg tablet (Zituvio) 100 mg PO DAILY 06/08/25 06/08/25 vitamin B complex (Vitamins B 1 cap PO DAILY 06/08/25 06/08/25 Complex capsule) Allergies Allergy/AdvReac Type Severity Reaction Status Date / Time amlodipine Allergy Verified 09/22/25 10:56 Beta-Adrenergic Agents Allergy Verified 09/22/25 10:56 chlorthalidone Allergy Verified 09/22/25 10:56 felodipine Allergy Verified 09/22/25 10:56 hydralazine Allergy Verified 09/22/25 10:56 levofloxacin Allergy Verified 09/22/25 10:56 linagliptin Allergy Verified 09/22/25 10:56 lisinopril Allergy Verified 09/22/25 10:56 metformin Allergy Verified 09/22/25 10:56 metronidazole Allergy Verified 09/22/25 10:56 nitrofurantoin Allergy Verified 09/22/25 10:56 penicillin V Allergy Verified 09/22/25 10:56 pheniramine Allergy Verified 09/22/25 10:56 spironolactone Allergy Verified 09/22/25 10:56 sulfamethoxazole (From Allergy Verified 09/22/25 10:56 Bactrim) triamterene Allergy Verified 09/22/25 10:56 trimethoprim (From Bactrim) Allergy Verified 09/22/25 10:56 Review of Systems Review of Systems Narrative: Markedly positive at all points Patient History Medical History (Updated 09/22/25 @ 16:58 by Mitzy Davis MD) Depression Hypothyroidism (acquired) Diabetes Social History Smoking Status: Never smoker Exam Initial Vital Signs Initial Vital Signs: Vital Signs Pulse Rate 62 09/22/25 10:32 Pulse Oximetry 96 09/22/25 10:32 General: Frustrated, upset, pressured speech, somewhat disheveled but able to speak in full sentences quite fluently HEENT: Moist mucous membranes, normal sclera with reactive pupils, Respiratory: Lungs are clear to auscultation, no wheezing no rales no rhonchi. Full and symmetrical air movement Cardiac: Regular rate and rhythm no murmurs no bruits Abdomen: Soft, nontender, no rebound or guarding, no flank pain Skin: Warm and dry, no rashes Neurologic: I do not appreciate significant left-sided weakness however she does describe left-sided paresthesia the arm in the leg not including her face Extremities: No trauma, well perfused Psych: Cooperative, appropriate insight and affect NIH Stroke Scale/Score (NIHSS) RESULT SUMMARY: 2 points NIH Stroke Scale INPUTS: 1A: Level of consciousness ?> 0 = Alert; keenly responsive 1B: Ask month and age ?> 0 = Both questions right 1C: 'Blink eyes' & 'squeeze hands' ?> 0 = Performs both tasks 2: Horizontal extraocular movements ?> 0 = Normal 3: Visual plata ?> 0 = No visual loss 4: Facial palsy ?> 1 = Minor paralysis (flat nasolabial fold, smile asymmetry) 5A: Left arm motor drift ?> 0 = No drift for 10 seconds 5B: Right arm motor drift ?> 0 = No drift for 10 seconds 6A: Left leg motor drift ?> 0 = No drift for 5 seconds 6B: Right leg motor drift ?> 0 = No drift for 5 seconds 7: Limb Ataxia ?> 0 = No ataxia 8: Sensation ?> 1 = Mild-moderate loss: can sense being touched 9: Language/aphasia ?> 0 = Normal; no aphasia 10: Dysarthria ?> 0 = Normal 11: Extinction/inattention ?> 0 = No abnormality Course Orders Ordered: ED Orders 09/22/25 10:34 CT head/brain wo con Stat 09/22/25 10:35 CT angio head and neck Stat EKG-12 Lead Stat 09/22/25 10:38 Urinalysis and Microscopic Stat Urine Drug Screen, Rapid Stat 09/22/25 10:45 Complete Blood Count AUTO DIFF Stat Comprehensive Metabolic Panel Stat Troponin & CK Cardiac Panel Stat Discontinued Medications Oxycodone HCl (Oxycodone Ir 5 Mg Tablet) 5 mg PO NOW ONE Stop: 09/22/25 11:46 Last Admin: 09/22/25 11:54 Dose: Not Given Documented By: MEGAN Vital Signs Vital signs: Vital Signs - 8 hr 09/22/25 10:32 09/22/25 10:33 09/22/25 10:33 Temperature Pulse Rate 62 72 Respiratory Rate Blood Pressure 187/100 H Pulse Oximetry 96 96 Oxygen Delivery Method 09/22/25 10:41 09/22/25 10:41 09/22/25 10:51 Temperature 97.8 F Pulse Rate 76 67 Respiratory Rate 18 Blood Pressure 193/86 H 112/56 L Pulse Oximetry 95 97 Oxygen Delivery Method Room Air 09/22/25 11:00 09/22/25 11:00 09/22/25 11:30 Temperature Pulse Rate 67 Respiratory Rate 18 Blood Pressure 163/77 H 183/77 H Pulse Oximetry 94 Oxygen Delivery Method 09/22/25 11:30 09/22/25 12:00 09/22/25 12:00 Temperature Pulse Rate 73 74 Respiratory Rate 13 12 Blood Pressure 180/83 H Pulse Oximetry 92 91 Oxygen Delivery Method 09/22/25 12:06 09/22/25 12:06 09/22/25 12:30 Temperature Pulse Rate 65 69 Respiratory Rate 12 20 Blood Pressure 159/75 H Pulse Oximetry 96 93 Oxygen Delivery Method 09/22/25 12:31 Temperature Pulse Rate Respiratory Rate Blood Pressure 160/74 H Pulse Oximetry Oxygen Delivery Method Medical Decision Making Lab Data 09/22/25 10:45 09/22/25 10:45 Labs: Lab Results 09/22/25 09/22/25 09/22/25 Range/Units 10:38 10:38 10:45 WBC 8.6 (4.5-11.0) X10^3/uL RBC 4.50 (4.0-5.2) X10^6/uL Hgb 14.3 (12.0-16.0) g/dL Hct 40.9 (36-46) % MCV 90.8 (80-100) fL MCH 31.7 (26-34) PG MCHC 34.9 (30-36) % RDW 14.1 (11.6-14.8) % Plt Count 196 (150-400) X10^3/uL Neut % (Auto) 65.5 (50-75) % Lymph % (Auto) 23.5 L (25-40) % [place] % (Auto) 7.3 (3-14) % Eos % (Auto) 2.6 (2-4) % Baso % (Auto) 1.1 (0-2) % Neut # (Auto) 5600 (5756-7148) /uL Lymph # (Auto) 2000 (6851-9679) /uL [place] # (Auto) 600 (0-900) /uL Eos # (Auto) 200 (0-450) /uL Baso # (Auto) 100 (0-100) /uL Sodium 134 L (137-145) mmol/L Potassium 3.4 (3.4-5.1) mmol/L Chloride 97 L (98-107) mmol/L Carbon Dioxide 26 (22-32) mmol/L BUN 17 (7-17) mg/dL Creatinine 0.72 (0.52-1.04) mg/dL Estimated GFR > 60 (>60) mL/min BUN/Creatinine Ratio 23.6 H (6-22) Glucose 363 H (70-99) mg/dL Calcium 9.2 (8.4-10.2) mg/dL Total Bilirubin 0.3 (0.2-1.3) mg/dL AST 38 H (14-36) IU/L ALT 50 H (<35) IU/L Alkaline Phosphatase 81 (38-126) U/L Total Creatine Kinase 35 (30-135) U/L Troponin I < 0.012 (0.01-0.034) ng/mL Total Protein 7.4 (6.3-8.2) g/dL Albumin 4.5 (3.5-5.0) g/dL Globulin 2.9 (1.7-4.1) g/dL Albumin/Globulin Ratio 1.6 (1.0-2.8) Urine Color Yellow Urine Appearance Clear Urine pH 5.5 Normal (4.5-8.0) Ur Specific Bard 1.010 (1.000-1.035) Urine Protein Negative (Negative) Urine Glucose (UA) 3+ H (Negative) g/dL Urine Ketones Negative (NEGATIVE) Urine Occult Blood Negative (Negative) Urine Nitrate Negative (Negative) Urine Bilirubin Negative (NEGATIVE) Urine Urobilinogen 0.2 (0.2) E.U./dL Ur Leukocyte Esterase Negative (NEGATIVE) Urine RBC None seen (0-5/HPF) Urine WBC None seen (0-5/HPF) Ur Squamous Epith Cells None seen (0-5/HPF) Urine Bacteria None seen (None) Ur Culture Indicated? Cult not indicated Vol Urine Centrifuged 10ml (spun) U Opiates 300ng/mL cut Negative (Negative) Ur Oxycodone Screen Negative (Negative) Urine Methadone Screen Negative (Negative) Ur Barbiturates Screen Negative (Negative) U Tricyclic Antidepress Negative (Negative) Ur Phencyclidine Scrn Negative (Negative) Ur Amphetamines Screen Negative (Negative) U Methamphetamines Scrn Negative (Negative) Ur MDMA Scrn (Ecstasy) Negative (Negative) U Benzodiazepines Scrn Negative (Negative) Urine Cocaine Screen Negative (Negative) U Marijuana (THC) Screen Negative (Negative) Urine Specific Bard Normal (Normal) Ur Creatinine Normal (Normal) MDM Narrative Medical decision making narrative: CC: Headache, left side paresthesia seemingly worse in the last 48 hours but chronic issue Complicating co-morbidities: Diabetes, hypertension, Data collected from: patient Social determinants of health that may influence the patients condition: Very unhappy with current living situation, it sounds like money issues in living situations been a concern for at least last 5 years her sister has been assisting Medical records reviewed: Only medical records available our ER visits from February, May, June always similar complaints Differential considered: Exacerbation of prior stroke, psychiatric disturbance, DKA, significant electrolyte abnormalities, baseline dysfunction Exam documented above, pertinent findings include: Somewhat pressured speech but calms once I am able to actually sit down and fully focused and concentrate and allow her to talk. Slight decreased sensation left arm left leg and remainder of exam is benign Lab Test results independently reviewed as above. Pertinent findings: CBC is unremarkable Chemistries show a glucose at 363 without anion gap. Appropriate renal function. Minimally elevated AST at 38 and ALT at 50. Troponin is undetected Urine has sugar in it no other abnormalities Urine tox screen is negative Independently reviewed EKG: EKG shows sinus rhythm rate of 64 without acute ischemic changes Imaging studies independently reviewed: CT scan of the head does not show acute abnormality and does not suggest prior significant stroke CT angiogram of the head and neck is unremarkable Treatments: A diabetic high-fiber lunch 5 mg of oxycodone Discussion: 79-year-old woman comes in [facility] because ?nobody is listening to her, everybody is ignoring the fact that the entire left side of her body does not work, the food is horrible, she is becoming weaker and weaker, she can no longer walk for a mi?. With the potential for worsening left-sided paresthesia over the last 48 hours stroke was considered and CT scan of the head as well as CT angiogram did not reveal new findings. Patient is very clear that she does not want to go back on insulin or any diabetic medications, blood sugar today was in the low 300 range with no sign of acidosis. I suspect that she has typically been in these higher ranges. She complains of frequent urination and we discussed the correlation between high blood sugars and frequent urination. She was unwilling to consider that this might be a source. There was no sign of urinary tract infection. Remainder of blood workup is remarkable. The pressure was slightly elevated. There is no indication for hospitalization or further workup. I think the majority of her complaints are psychosocial in nature and I am not going to be able to fix those for her today, currently she does have a safe place to which she can be discharged. I have encouraged her to follow up with her primary care physician to discuss medications to help get her blood sugar down beyond insulin to see if this might help with her urinary frequency. I suspect she is not taking her blood pressure medications either, patient autonomy and decision-making process we will be respected here. Discharge Plan Departure Patient Disposition: Home Clinical Impression: Paresthesia and pain of left extremity, Frequent urination, Hyperglycemia, unspecified, Acute situational disturbance Activity Restrictions/Additional Instructions: Thank you for coming in today Unfortunately I do not have any answers for many of your chronic issues. We did do a CT scan as well as CT angiogram of your head and neck to make sure that you were not having an acute stroke as you noted that your left side was having more difficulty and more numbness over the last 2 days. These studies were quite reassuring Your blood work is essentially unchanged. Your blood sugar was slightly high, just above 300. High blood sugar will act as a diuretic and this may be why you are having such frequent urination. I would encourage you to talk to your primary care physician about non insulin medication options that might help get the sugars down slightly to help with the frequent urination It is important that continue to take all of your blood pressure medications If you find that you are developing any new symptoms please feel free to return to the ER Prescriptions: No Action (DME) blood-glucose meter [OneTouch Ultra2 Meter] [facility] MISCELLANEOUS DAILY hydrochlorothiazide 50 mg tablet 50 mg PO DAILY (DME) OneTouch Ultra Test Strip 2 strip MISCELLANEOUS BID insulin glargine [Lantus Solostar U-100 Insulin] 100 unit/mL (3 mL) insulin pen 20 unit SUBCUT .at bedtime Patient Comments: [NO ORIGINAL SIG] insulin lispro [Humalog KwikPen Insulin] 100 unit/mL insulin pen 6 unit SUBCUT AC Patient Comments: [NO ORIGINAL SIG] Rx Instructions: inject 6 unit subcutaneously with meals for type 2 DM. hold insulin lispro if not eating or blood sugar less than 120. levothyroxine 75 mcg tablet 75 mcg PO DAILY naproxen 500 mg tablet 500 mg PO Q12H PRN (Reason: pain) (DME) lancets [TRUEplus Lancets] 30 gauge [facility] MISCELLANEOUS Patient Comments: [NO ORIGINAL SIG] nifedipine 30 mg tablet extended release 24hr 30 mg PO .morning potassium chloride 20 mEq tablet,ER particles/crystals 20 meq PO DAILY sitagliptin [Zituvio] 100 mg tablet 100 mg PO DAILY aripiprazole [Abilify] 5 mg tablet 5 mg PO DAILY magnesium oxide 400 mg magnesium tablet 400 mg PO TID melatonin 5 mg capsule 10 mg PO .at bedtime docusate sodium [Col-Rite] 250 mg capsule 500 mg PO BEDTIME loratadine [Allergy Relief (loratadine)] 10 mg tablet 10 mg PO Q24H PRN (Reason: allergic symptoms) ascorbic acid (vitamin C) [Vitamin C] 250 mg tablet 250 mg PO DAILY Ocuvite Adult 50 Plus 250 mg (90 mg-160 mg) capsule 1 cap PO DAILY vitamin B complex [Vitamins B Complex] Capsule 1 cap PO DAILY acetaminophen 325 mg capsule 650 mg PO Q4H PRN (Reason: fever or pain) Stand Alone Forms: Patient Portal/API
--- NOTE | 2025-09-22 10:34 | DI.CT.S_ITS ---
PROCEDURE: CT HEAD/BRAIN WO CON INDICATIONS: left side paresthesia x 48hrs TECHNIQUE: Noncontrast 4.5 mm thick angled axial sections acquired from the foramen magnum to the vertex, with coronal and sagittal reformats. For radiation dose reduction, the following was used: automated exposure control, adjustment of mA and/or kV according to patient size. COMPARISON: [facility], CT, CT ANGIO HEAD AND NECK, 09/22/2025, 10:46. [facility], CT, CT HEAD/BRAIN WO CON, 07/05/2025, 15:08. FINDINGS: Image quality: Streak artifact can be seen through the skull base. CSF spaces: Basal cisterns are patent. No extra-axial fluid collections. The ventricles are symmetric in size and shape. Brain: No intracranial bleeds or mass effect. There is cerebral volume loss, with resultant ventricular and sulcal prominence. There are periventricular and deep white matter chronic small vessel ischemic changes. There is intracranial internal carotid artery atherosclerosis. Skull and face: Calvarium and visualized facial bones appear intact, without suspicious lesions. Incidental note is made of hyperostosis frontalis. This is not considered to be pathologic in a woman of this age. Sinuses: Visualized sinuses and mastoids are clear. IMPRESSION: No acute intracranial pathology. To the limits of this noncontrast study, no findings of intracranial masses or mass effect can be seen. Dictated by: George Davis M.D. on 09/22/2025 at 11:40 Approved by: George Davis M.D. on 09/22/2025 at 11:41
--- NOTE | 2025-09-22 10:35 | DI.CT.S_ITS ---
PROCEDURE: CT ANGIO HEAD AND NECK INDICATIONS: left side paresthesia x 48hrs TECHNIQUE: After the administration of intravenous contrast, 1 mm thick sections acquired from the aortic arch through the [place]. 3-dimensional cfiaimo-pmlctobul-biulufyxqu (MIP) and/or volume rendering reformats were acquired of the central intracranial vasculature and neck separately. For radiation dose reduction, the following was used: automated exposure control, adjustment of mA and/or kV according to patient size. COMPARISON: [facility], CT, CT HEAD/BRAIN WO CON, 09/22/2025, 10:46. [facility], CT, CT HEAD/BRAIN WO CON, 07/05/2025, 15:08. FINDINGS: Image quality: Diagnostic. Cerebral CT Angiogram: Internal carotid arteries: No acute findings. Intracranial ICA are patent with no significant stenosis. No occlusion. No aneurysm. Anterior cerebral arteries: Unremarkable. No significant stenosis. No occlusion. No aneurysm. Middle cerebral arteries: Unremarkable. No significant stenosis. No occlusion. No aneurysm. Posterior cerebral arteries: Unremarkable. No significant stenosis. No occlusion. No aneurysm. Basilar artery: Unremarkable. No significant stenosis. No occlusion. No aneurysm. Vertebral arteries: Unremarkable as visualized. Dural venous sinuses: Unremarkable given phase of enhancement. Other: Arterial phase appearance of the brain parenchyma is unremarkable. Neck CT Angiogram: Internal carotid arteries: Unremarkable. No significant stenosis. No dissection or occlusion. Common carotid arteries: Unremarkable. No significant stenosis. No dissection or occlusion. External carotid arteries: Unremarkable. No occlusion. Vertebral arteries: The origins of the vertebral arteries both appear widely patent. The more superior extracranial portions of both vertebral arteries also demonstrate normal courses and calibers. The right vertebral artery is dominant to the left. Aortic Arch and Mediastinum: Partially visualized aortic arch unremarkable without evidence of aneurysm. Origins of the great vessels unremarkable. Other: Arterial phase soft tissues of the neck and chest are unremarkable. Moderate cervical spine degenerative changes are seen, which are worst inferiorly. IMPRESSION: No imaging explanation is found for this patient's presenting symptoms. No significant intracranial arterial abnormality is seen. No significant abnormality is seen within the arteries of the neck. If there is strong clinical suspicion for an acute stroke, please consider a brain MRI for further evaluation, as it is more sensitive (assuming that there is no contraindication to MRI). Additional findings: Moderate cervical spine degenerative change Any quantitative measurements of stenosis were performed using NASCET criteria. Dictated by: George Davis M.D. on 09/22/2025 at 11:41 Approved by: George Davis M.D. on 09/22/2025 at 11:42
--- NOTE | 2025-09-22 10:35 | EKG_ITS ---
[place] [address] [place] [id number] Test Date: 2025-09-22 Pat Name: Taylor Booth Department: [facility] Room: Gender: Female [employer]: CYRIL : 1945 Requested By: Order Number: [id number] Reading MD: Wilner Cornejo MD Measurements Intervals [place] Rate: 64 P: 65 WI: 190 QRS: -8 QRSD: 78 T: 69 QT: 378 QTc: 389 Interpretive Statements Sinus rhythm with premature atrial complexes Cannot rule out Anterior infarct , age undetermined Electronically Signed On 09-22-2025 12:03:22 PDT by Wilner Cornejo MD
[2025-09-22 11:01] LABS: Add Manual Diff / Slide Review NO; Hematocrit 40.9 % (36-46); Hemoglobin 14.3 g/dL (12.0-16.0); Lymphocytes Absolute Auto 2000 /uL (1100-4500); Mean Corpuscular HGB Conc 34.9 % (30-36); Mean Corpuscular Hemoglobin 31.7 PG (26-34); Mean Corpuscular Volume 90.8 fL (80-100); Platelet Count 196 X10^3/uL (150-400)
[2025-09-22 11:10] LABS: Alanine Aminotransferase 50 IU/L (<35); Albumin 4.5 g/dL (3.5-5.0); Albumin Globulin Ratio 1.6 (1.0-2.8); Alkaline Phosphatase 81 U/L (38-126); Blood Urea Nitrogen 17 mg/dL (7-17); Calcium 9.2 mg/dL (8.4-10.2); Carbon Dioxide 26 mmol/L (22-32); Chloride 97 mmol/L (98-107); Creatine Kinase 35 U/L (30-135); Estimated Glomerular Filt Rate > 60 mL/min (>60); Globulin 2.9 g/dL (1.7-4.1); Glucose 363 mg/dL (70-99); HEMOLYSIS 16 (0-50); Potassium 3.4 mmol/L (3.4-5.1); Sodium 134 mmol/L (137-145); Total Protein 7.4 g/dL (6.3-8.2)
[2025-09-22 11:22] LABS: Troponin I < 0.012 ng/mL (0.01-0.034)
[2025-09-22 12:28] LABS: Appearance Urine UA CLEAR; Bilirubin Urine UA NEGATIVE (NEGATIVE); Color Urine UA YELLOW; Glucose Urine UA 3+ g/dL (Negative); Ketones Urine UA NEGATIVE (NEGATIVE); Leukocyte Esterase Urine UA NEGATIVE (NEGATIVE); Nitrite Urine UA NEGATIVE (Negative); Occult Blood Urine UA NEGATIVE (Negative); Protein Urine UA NEGATIVE (Negative); Specific Gravity Urine UA 1.010 (1.000-1.035); Urobilinogen Urine UA 0.2 E.U./dL (0.2)
[2025-09-22 12:29] LABS: UR Morphine/Opiate cutoff 300 Negative (Negative); Ur Specific Gravity Normal (Normal); Urine MDMA Negative (Negative); Urine Methamphetamines Negative (Negative); Urine Tetrahydrocannabinol Negative (Negative); Urine Tricyclic Antidepressant Negative (Negative)
[2025-09-22 12:30] LABS: pH Urine UA 5.5 (4.5-8.0)
[2025-09-22 12:32] LABS: Culture Indicated Urine Cult Not Indicated
== END 2025-09-22 17:40 | disposition home or self-care (01) ==
PROVIDERS: Emergency Provider Emergency Medicine
DX: M79.602 Pain in left arm (principal); E11.65 Type 2 diabetes mellitus with hyperglycemia; R35.0 Frequency of micturition; F43.0 Acute stress reaction
CPT/HCPCS: 36415; 70450; 70496; 70498; 80053; 80305; 81001; 82550; 84484; 85025; 93005; 93010; 99284; Q9967